=== PATIENT | male | born 1990 | race African-American/Black ===

== ENCOUNTER 2017-09-20 17:33 | Emergency (ER) | payer SELFPAY | END 2017-09-20 18:38 | disposition home or self-care (01) | LOC: MADERS 17:33 | DX: I10 Essential (primary) hypertension (principal) | CPT/HCPCS: 99283 ==

== ENCOUNTER 2022-12-21 18:43 | Emergency (ER) | payer BC, OTHER ==
[2022-12-21] MEDS ORDERED: Ibuprofen 800 MG TAB ONE (19:16)
== END 2022-12-21 19:46 | disposition home or self-care (01) ==
LOC: MADERS 18:43
DX: J02.9 Acute pharyngitis, unspecified (principal); I10 Essential (primary) hypertension
CPT/HCPCS: 87081; 87430; 99283

== ENCOUNTER 2022-12-29 19:35 | Emergency (ER) | payer BC | END 2022-12-29 20:30 | disposition home or self-care (01) | LOC: MADERS 19:35 | DX: J02.8 Acute pharyngitis due to other specified organisms (principal); I10 Essential (primary) hypertension | CPT/HCPCS: 87081; 87430; 99283 ==